=== PATIENT | female | born 1975 | race Caucasian/White ===

== ENCOUNTER 2019-09-21 06:14 | Emergency (ER) | payer MEDICAID ==
[~2019-09-21] VITALS: Ht 162.6 cm; Wt 106.8 kg
[2019-09-21 06:18] VITALS: Ht 162.6 cm; Wt 106.8 kg
[2019-09-21 09:05] VITALS: BP 132/71
== END 2019-09-21 09:05 | disposition home or self-care (01) ==
LOC: ED 06:14
DX: R51 Headache (principal); R20.0 Anesthesia of skin
CPT/HCPCS: J1885

== ENCOUNTER 2020-01-29 22:46 | Emergency (ER) | payer MEDICAID ==
[~2020-01-29] VITALS: Ht 162.6 cm; Wt 105.2 kg
[2020-01-30 01:55] VITALS: BP 121/71
== END 2020-01-30 01:55 | disposition home or self-care (01) ==
LOC: ED 22:46
DX: G44.209 Tension-type headache, unspecified, not intractable (principal)

== ENCOUNTER 2020-02-03 16:25 | Emergency (ER) | payer MEDICAID ==
[~2020-02-03] VITALS: Ht 162.6 cm; Wt 103.9 kg
[2020-02-03 16:43] VITALS: Ht 162.6 cm; Wt 103.9 kg
[2020-02-03 21:12] LABS: BASOPHIL % 0.3 % (0-2); PLATELET COUNT 238 x10^3mcL (130-400)
[2020-02-03 21:14] LABS: CHLORIDE SERUM 103 mmol/L (98-107); POTASSIUM SERUM 3.6 mmol/L (3.5-5.1); SODIUM SERUM 140 mmol/L (136-145)
[2020-02-03 21:16] LABS: RED CELL DISTRIBUTION WIDTH 31.2 % (11.5-14.5)
[2020-02-03 21:23] LABS: CALCIUM 8.6 mg/dL (8.5-10.1); CARBON DIOXIDE 26.4 mmol/L (21-32); CREATININE SERUM 0.8 mg/dL (0.6-1.0); GFR1 > 60 mL/min; GLUCOSE SERUM 81 mg/dL (74-106)
[2020-02-03 21:26] LABS: rbc morphology (normal/abnorm) ABNORMAL (NORMAL)
[2020-02-03 21:27] LABS: ALBUMIN 4.2 g/dL (3.4-5.0); ALKALINE PHOSPHATASE 54 U/L (46-116); ALT/SGPT 26 U/L (14-59); AST/SGOT 18 U/L (15-37); BILIRUBIN TOTAL 0.32 mg/dL (0.20-1.00)
[2020-02-03 21:28] LABS: TOTAL PROTEIN, SERUM 8.3 g/dL (6.4-8.2)
[2020-02-03 23:52] VITALS: BP 120/71
== END 2020-02-03 23:52 | disposition home or self-care (01) ==
LOC: ED 16:25
DX: R07.89 Other chest pain (principal); R20.2 Paresthesia of skin; R10.816 Epigastric abdominal tenderness; Z86.2 Personal history of diseases of the blood and blood-forming organs and certain disorders involving the immune mechanism
CPT/HCPCS: Q0092

== ENCOUNTER 2020-08-26 19:52 | Emergency (ER) | payer MEDICAID, SELFPAY ==
[~2020-08-26] VITALS: Ht 162.6 cm; Wt 90.7 kg
[~2020-08-26 19:52] MED LIST: GOOD NEIGHBOR P20 M2 PO; IBU800 M2 PO
[2020-08-26 19:54] VITALS: BP 149/81; Ht 162.6 cm; Wt 90.7 kg
[2020-08-26 20:27] LABS: BASOPHIL % 0.4 % (0.2-1.3); PLATELET COUNT 213 x10^3mcL (179-408); RED CELL DISTRIBUTION WIDTH 13.7 % (12.3-17.7)
[2020-08-26 20:36] LABS: CALCIUM 9.2 mg/dL (8.5-10.1); CARBON DIOXIDE 26.4 mmol/L (21-32); CHLORIDE SERUM 102 mmol/L (98-107); CREATININE SERUM 0.9 mg/dL (0.6-1.0); GFR1 > 60 mL/min; GLUCOSE SERUM 105 mg/dL (74-106); POTASSIUM SERUM 3.1 mmol/L (3.5-5.1); SODIUM SERUM 138 mmol/L (136-145)
[2020-08-26 20:42] LABS: ALKALINE PHOSPHATASE 62 U/L (46-116); ALT/SGPT 33 U/L (14-59); AST/SGOT 16 U/L (15-37); BILIRUBIN TOTAL 0.37 mg/dL (0.20-1.00); LIPASE 188 IU/L (73-393); TOTAL PROTEIN, SERUM 7.8 g/dL (6.4-8.2)
== END 2020-08-26 21:55 | disposition home or self-care (01) ==
LOC: ED 19:52
PROVIDERS: Emergency Medicine
DX: R10.816 Epigastric abdominal tenderness (principal); R11.2 Nausea with vomiting, unspecified; R68.83 Chills (without fever); R42 Dizziness and giddiness; R53.83 Other fatigue; K21.9 Gastro-esophageal reflux disease without esophagitis; Z86.2 Personal history of diseases of the blood and blood-forming organs and certain disorders involving the immune mechanism; Z90.49 Acquired absence of other specified parts of digestive tract
CPT/HCPCS: Q0162